=== PATIENT | female | born 1965 | race Two or more races ===

== ENCOUNTER 2017-10-04 20:09 | Emergency (ER) | payer OTHER ==
[~2017-10-04] VITALS: Ht 167.6 cm; Wt 72.6 kg
[2017-10-04 20:22] VITALS: BP 105/72
[2017-10-04] MEDS ORDERED: Bacitracin Oint UD TOPIC ONE ×2 (20:35→20:45)
--- NOTE | 2017-10-04 20:43 | Emergency Room Report ---
History of Present Illness General Chief Complaint: Animal Bite Source: Patient Present Illness HPI Patient is [id number] Was walking her dog When there was a altercation between her dog and another dog in an attempt to move her dog out of the way she sustained a puncture wound to the web of the right hand patient has 5 out of 10 pain Denies any other lapse of consciousness also has pain proximal to the puncture wound denies any other trauma Allergies: Coded Allergies: No Known Allergies (Verified , 07/13/11) Patient History Past Medical History: see triage record Pertinent Family History: none Reviewed Nursing Documentation: PMH: Agreed; PSxH: Agreed Nursing Documentation-PMH Past Medical History: No Stated History Review of Systems All Other Systems: negative except mentioned in HPI Physical Exam Vital Signs Date Time Temp Pulse Resp B/P (MAP) Pulse Ox O2 Delivery O2 Flow Rate FiO2 10/04/17 20:17 98.0 74 18 105/72 99 Room Air 98.1 Sp02 EP Interpretation: reviewed, normal General Appearance: well appearing, no apparent distress Head: normocephalic, atraumatic Eyes: bilateral eye PERRL, bilateral eye EOMI ENT: normal pharynx, no angioedema Neck: supple Respiratory: lungs clear Cardiovascular #1: regular rate, rhythm Gastrointestinal: non tender, soft Musculoskeletal: other - Puncture wound to the web of the right hand between the thumb and the index finger, also skin avulsion dorsal hand Neurologic: alert, oriented x3, other - Able to approximate all digits with thumb Skin: other - As above Procedures Laceration/Wound Repair Laceration/Wound Repair : Consent: Emergent Wound Location: upper extremity Wound's Depth, Shape: into muscle Wound Length (cm): 0 Wound Explored: no foreign body removed Irrigated w/ Saline (ccs): 200 Betadine Prep?: Yes Anesthesia: 1% Lidocaine Volume Anesthetic (ccs): 2 Wound Debrided: moderate Wound Repaired With: sutures Suture Size/Type: 6:0 Number of Sutures: 2 Layer Closure?: No Sterile Dressing Applied?: Yes Splint Applied?: No Sling Applied?: No Patient Tolerated: Well Complications: None Medical Decision Making Diagnostic Impression: Primary Impression: Bite by animal Additional Impression: Puncture wound ER Course Given the puncture wound and the presentation Imaging study was initiated After local sedation copious amount of saline/Betadine high pressure washout was also performed Patient required 2 sutures to approximate the wound I did discuss not sealing the wound as this will likely lead to infection Patient still has high risk of infection was given initial antibiotic here and requires close outpatient follow-up Last Vital Signs Date Time Temp Pulse Resp B/P (MAP) Pulse Ox O2 Delivery O2 Flow Rate FiO2 10/04/17 20:17 98.0 74 18 105/72 99 Room Air 98.1 Status: improved Disposition: HOME, SELF-CARE Condition: Improved Referrals: [facility],REFERRING (PCP) Additional Instructions: Patient is provided with the discharge instructions notified to follow up with primary doctor in the next 2-3 days otherwise return to the er with any worsening symptoms. Please note that this report is being documented using [employer] technology. This can lead to erroneous entry secondary to incorrect interpretation by the dictating instrument. Annita Sousa DO Oct 04, 2017 20:43
[2017-10-04] MEDS ORDERED: Augmentin 875mg Tab ORAL ONE (20:45)
[2017-10-04] MEDS ORDERED: IBUPROFEN600 MG ORAL (20:48)
[2017-10-04] MEDS ORDERED: AUGMENTIN 875-1 EAC1 ORAL (20:48)
[2017-10-04 21:04] VITALS: BP 0/0
--- NOTE | 2017-10-05 11:12 | Diagnostic Imaging Report ---
Indication: Pain in right hand Technique: 3 views right hand Comparison: none Findings: No acute fractures. No dislocations. The joint spaces are preserved Impression: Negative
== END 2017-10-04 21:04 | disposition home or self-care (01) ==
LOC: EMR 20:25
DX: S61.431A Puncture wound without foreign body of right hand, initial encounter (principal); W54.0XXA Bitten by dog, initial encounter; Y92.9 Unspecified place or not applicable
CPT/HCPCS: 99283

== ENCOUNTER 2019-06-29 08:13 | Emergency (ER) | payer OTHER ==
[~2019-06-29] VITALS: Ht 170.2 cm; Wt 61.2 kg
[~2019-06-29 08:13] MED LIST: AUGMENTIN 875-1 EAC1 ORAL; IBUPROFEN600 MG ORAL
[2019-06-29] MEDS ORDERED: ATORVASTATIN CA40 MG ORAL (08:40)
[2019-06-29] MEDS ORDERED: CORTISPORIN EAR10 ML OTIC (08:46)
[2019-06-29] MEDS ORDERED: IBUPROFEN600 MG ORAL (08:46)
[2019-06-29 08:48] VITALS: BP 132/78
--- NOTE | 2019-06-29 08:49 | Emergency Room Report ---
History of Present Illness General Chief Complaint: Earache Source: Patient Present Illness HPI Patient presents with complaints of right-sided ear pain she has been having pain there for the past 10 days Reports that she was put on oral antibiotics by her doctor However does not feel much improved denies any fevers or chills denies any posterior neck pain denies any cough COVID-19 risk:Travel to affect: No Allergies: Coded Allergies: No Known Allergies (Verified , 07/13/11) Patient History Past Medical History: see triage record Reviewed Nursing Documentation: PMH: Agreed; PSxH: Agreed Nursing Documentation-PMH Past Medical History: No History, Except For Hx Cardiac Problems: No - Hypothyroidism, high cholesterol Hx Hypertension: No - hearing problem Hx Pacemaker: No Hx Asthma: No Hx COPD: No Hx Diabetes: No Hx Cancer: No Hx Gastrointestinal Problems: No Hx Dialysis: No History Of Psychiatric Problem: No Hx Neurological Problems: No Hx Cerebrovascular Accident: No Hx Seizures: No Review of Systems All Other Systems: negative except mentioned in HPI Physical Exam Vital Signs Date Time Temp Pulse Resp B/P (MAP) Pulse Ox O2 Delivery O2 Flow Rate FiO2 06/29/19 08:27 98.2 65 15 132/78 (96) 95 Room Air Sp02 EP Interpretation: reviewed, normal General Appearance: well appearing, no apparent distress Head: normocephalic, atraumatic Eyes: bilateral eye PERRL, bilateral eye EOMI ENT: other - Inflammation and irritation erythema to the canal on the right side the tympanic membrane appears clear Neck: supple Respiratory: lungs clear, no respiratory distress Cardiovascular #1: regular rate, rhythm Gastrointestinal: non tender, soft Musculoskeletal: normal inspection Neurologic: alert, oriented x3 Skin: no rash Lymphatic: normal inspection Medical Decision Making Diagnostic Impression: Primary Impression: otitis externa ER Course Patient's clinical exam is consistent with otitis externa other differential such as malignant otitis media and externa are considered Patient does not appear septic or toxic there is no bogginess in the mastoid region or tenderness patient was placed on appropriate medication and requires close outpatient follow-up Last Vital Signs Date Time Temp Pulse Resp B/P (MAP) Pulse Ox O2 Delivery O2 Flow Rate FiO2 06/29/19 08:27 98.2 65 15 132/78 (96) 95 Room Air Status: unchanged Disposition: HOME, SELF-CARE Condition: Stable Scripts Ibuprofen* (MOTRIN*) 600 Mg Tablet 600 MG ORAL Q8H PRN for For Pain, #20 TAB 0 Refills Prov: Annita Sousa DO 06/29/19 Neomycin/Polymyxin B Sulf/Hc* (CORTISPORIN EAR SOLUTION*) 10 Ml Solution 2 DROP OTIC FOUR TIMES A DAY for 7 Days, #1 EA Instill in affected ear as directed for 7 days Prov: Annita Sousa DO 06/29/19 Referrals: [facility]. [facility] Patient Instructions: Otitis Externa, [id number] Additional Instructions: Patient is provided with the discharge instructions notified to follow up with primary doctor in the next 2-3 days otherwise return to the er with any worsening symptoms. Please note that this report is being documented using [employer] technology. This can lead to erroneous entry secondary to incorrect interpretation by the dictating instrument. Annita Sousa DO Jun 29, 2019 08:49
--- NOTE | 2019-06-29 08:50 | NUR ---
ED Nurse Note: a/ox4. brought by daughter due to right earache with tenderness to touch. denies fever/chills/cough/sorethroat. Per pt, she's been using hearing aids for years and pain increased past couple days. NAD noted.
[2019-06-29 08:53] VITALS: BP 132/78
--- NOTE | 2019-06-29 08:53 | NUR ---
ED Nurse Note: Pt cleared by health care Provider for discharge. DC instructions/prescription was given and explained to pt and verbalized understanding of teachings. All medical deviecs such as ID band removed. Pt is AAO x4, ambulatory and left with all personal belongings.
== END 2019-06-29 08:55 | disposition home or self-care (01) ==
LOC: EMR 08:40
DX: H60.91 Unspecified otitis externa, right ear (principal); E03.9 Hypothyroidism, unspecified; E78.00 Pure hypercholesterolemia, unspecified
CPT/HCPCS: 99282